=== PATIENT | female | born 1995 | race Two or more races ===

== ENCOUNTER 2017-09-05 20:35 | Observation (INO) | payer OTHER ==
[~2017-09-05] VITALS: Ht 162.6 cm; Wt 61.1 kg
[2017-09-05 21:40] LABS: BASOPHILS # (AUTO) 0.06 x10^3/uL (0-0.1); BASOPHILS % (AUTO) 1 % (0-1); EOSINOPHILS # (AUTO) 0.34 x10^3/uL (0-0.4); EOSINOPHILS % (AUTO) 4 % (1-7); LYMPHOCYTES % (AUTO) 44 % (22-44); MD NO; MEAN CORPUSCULAR HEMOGLOBIN 29.8 pg (27.0-34.8); MEAN CORPUSCULAR HGB CONC 32.8 g/dL (32.4-35.8); MEAN CORPUSCULAR VOLUME 90.7 fL (80-100); MEAN PLATELET VOLUME 7.3 fL (7.4-10.4); MONOCYTES # (AUTO) 0.83 x10^3/uL (0.2-0.8); MONOCYTES % (AUTO) 9 % (2-9); NEUTROPHILS # (AUTO) 3.77 x10^3/uL (1.8-6.8); NEUTROPHILS % (AUTO) 42 % (42-75); PLATELET COUNT 442 x10^3/uL (130-400); RED BLOOD COUNT 4.77 x10^6/uL (3.82-5.3); RED CELL DISTRIBUTION WIDTH 12.7 % (9.6-15.2)
[2017-09-05 21:51] LABS: ALANINE AMINOTRANSFERASE 27 U/L (12-78); ALBUMIN 3.7 g/dL (3.4-5.0); ANION GAP 6 mmol/L (5-15); CALCIUM 8.6 mg/dL (8.5-10.1); CHLORIDE 107 mmol/L (98-107)
[2017-09-05 21:53] LABS: SALICYLATE LEVEL < 1.7 mg/dL (2.8-20.0)
[2017-09-05 21:56] LABS: ALKALINE PHOSPHATASE 76 U/L (45-117); BILIRUBIN,TOTAL 0.2 mg/dL (0.2-1.0); CREATININE 1.02 mg/dL (0.55-1.02); TOTAL PROTEIN 8.3 g/dL (6.4-8.2)
[2017-09-05 21:57] LABS: AMPHETAMINE SCREEN, URINE Negative (Negative); BARBITURATE SCREEN, URINE Negative (Negative); BENZODIAZEPINE SCREEN, URINE Negative (Negative); CANNABINOID SCREEN, URINE Negative (Negative); COCAINE SCREEN, URINE Negative (Negative); METHADONE SCREEN, URINE Negative (Negative); OPIATE SCREEN, URINE Negative (Negative)
[2017-09-05 21:59] LABS: ACETAMINOPHEN < 2 mcg/mL (10-30)
[2017-09-06] MEDS ORDERED: ACETAMINOPHEN 325 MG TABLET PO PRN (00:30)
[2017-09-06] MEDS ORDERED: LORazepam 1MG TABLET PO PRN (00:30)
[2017-09-06] MEDS ORDERED: ONDANSETRON ODT 4 MG PO PRN (00:30)
[2017-09-06] MEDS ORDERED: POLYETHYLENE GLYCOL 17 GM PACKET PO PRN (00:30)
[2017-09-06] MEDS ORDERED: TRAZODONE 50MG TABLET PO PRN (00:30)
[2017-09-06] MEDS ORDERED: BISACODYL 10 MG SUPP PR PRN (00:30)
[2017-09-06 07:15] VITALS: BP 95/55
[2017-09-06] MEDS ORDERED: SENNA/DOCUSATE TABLET PO SCH (09:00)
[2017-09-06] MEDS ORDERED: SERTRALINE 50MG TABLET PO SCH (11:00)
== END 2017-09-06 15:22 ==
LOC: ED 09-06 00:05 → EDIP 09-06 00:07 → 2N 09-06 01:03
PROVIDERS: ADMIT Internal Medicine; ATTEND Internal Medicine
DX: R45.851 Suicidal ideations (principal); F33.2 Major depressive disorder, recurrent severe without psychotic features; F41.1 Generalized anxiety disorder; D47.3 Essential (hemorrhagic) thrombocythemia; Z80.8 Family history of malignant neoplasm of other organs or systems; Z82.49 Family history of ischemic heart disease and other diseases of the circulatory system; Z82.5 Family history of asthma and other chronic lower respiratory diseases; Z83.3 Family history of diabetes mellitus
CPT/HCPCS: 36415; 71045; 80053; 80307; 80329; 84703; 85025; 93005; 99285; G0378; Q0177; G0480